=== PATIENT | male | born 1975 | race Two or more races ===

== ENCOUNTER 2020-03-14 18:30 | Emergency (ER) | payer MEDICAID ==
[~2020-03-14] VITALS: Ht 170.2 cm; Wt 97.8 kg
[2020-03-14 18:33] VITALS: BP 176/113
--- NOTE | 2020-03-14 19:27 | NUR ---
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
[2020-03-14] MEDS ORDERED: FLUORESCEIN OPHTHALMIC 1 MG STRIP ONE (19:35)
[2020-03-14] MEDS ORDERED: PROPARACAINE OPHTH 0.5%, 15ML ONE (19:36)
== END 2020-03-14 21:04 | disposition home or self-care (01) ==
LOC: ED 20:45
DX: B02.9 Zoster without complications (principal)
CPT/HCPCS: 99283